=== PATIENT | male | born 1940 | race Two or more races ===

== ENCOUNTER 2024-06-20 04:07 | Emergency (ER) | payer OTHER ==
[2024-06-20] MEDS ORDERED: Furosemide 40 MG (4 mL) VIAL ONE (04:22)
[2024-06-20 04:34] LABS: #Basophils 0.02 10x3/uL (0.0-0.2); #Eosinophils 0.09 10x3/uL (0.0-0.5); #Monocytes 0.97 10x3/uL (0.0-1.1); #Neutrophils 6.11 10x3/uL (1.5-8.4); %Basophils 0.2 % (0.0-2.0); %Eosinophils 1.1 % (0.0-6.0); %Lymphocytes 11.4 % (18.0-47.0); %Monocytes 11.9 % (0.0-10.0); %Neutrophils 75.2 % (40.0-75.0); Hematocrit 36.5 % (38.8-50.0); Hemoglobin 11.2 g/dL (13.5-17.5); Mean Corpuscular HGB CONC 30.7 g/dL (32.0-36.0); Mean Corpuscular Volume 91.3 fL (81.2-95.1); Mean Platelet Volume 9.6 fL (7.4-10.4); Platelet Count 215 10x3/uL (150-450); RBC Distribution Width 13.7 % (11.5-14.5); White Blood Cell (WBC) Count 8.1 10x3/uL (3.5-10.5)
[2024-06-20 04:46] LABS: Anion Gap 15 mmol/L (10-20); BUN (Urea Nitrogen) 28 mg/dL (8.4-25.7); Calc. Creatinine Clearance 0 mL/min (70-130); Calcium 9.2 mg/dL (7.8-10.44); Carbon Dioxide 19 mmol/L (23-31); Chloride 108 mmol/L (98-107); Estimated GFR 48; Glucose 135 mg/dL (83-110); Potassium 4.5 mmol/L (3.5-5.1); Sodium 137 mmol/L (136-145)
[2024-06-20 04:57] LABS: Critical Call Chem Troponin I ERS.WJM@0456; Troponin I 2.285 ng/mL (< 0.028)
[2024-06-20] MEDS ORDERED: Carvedilol 12.5 MG TAB PO SCH (05:00)
[2024-06-20] MEDS ORDERED: Enalaprilat Dihydrate 1.25 MG/ML VIAL SLOW IVP SCH (05:00)
[2024-06-20 08:08] LABS: Troponin I 2.686 ng/mL (< 0.028)
[2024-06-20] MEDS ORDERED: Aspirin 325 MG TAB ONE (08:40)
== END 2024-06-20 11:24 | disposition short-term general hospital (02) ==
LOC: EEVIPCON 04:07 → CSHERS 04:07
DX: J81.0 Acute pulmonary edema (principal); I21.4 Non-ST elevation (NSTEMI) myocardial infarction; I25.10 Atherosclerotic heart disease of native coronary artery without angina pectoris; I12.0 Hypertensive chronic kidney disease with stage 5 chronic kidney disease or end stage renal disease; E11.22 Type 2 diabetes mellitus with diabetic chronic kidney disease; N18.9 Chronic kidney disease, unspecified
CPT/HCPCS: 36415; 71045; 80048; 83880; 84484; 85025; 93005; 93010; 96374; 96375; J1940